=== PATIENT | female | born 1980 | race African-American/Black ===

== ENCOUNTER 2020-08-25 11:39 | Emergency (ER) | payer OTHER ==
[2020-08-25 11:45] VITALS: BP 151/93
--- NOTE | 2020-08-25 12:09 | ED Physician Documentation ---
PD HPI LOWER EXT INJURY - Stated complaint Stated Complaint: L ANKLE PX - Chief complaint Chief Complaint: Trauma Ext - History obtained from History obtained from: Patient - History of Present Illness PD HPI LOW EXT INJURY LOCATION: Left, Ankle Type of injury: Twist (inversion when stepping off curb) Timing - onset: Yesterday Timing - details: Abrupt onset, Still present Worsened by: Moving, Palpating, Other (walking) Associated symptoms: Swelling. No: Weakness, Numbness Similar symptoms before: Has not had sx before Review of Systems Constitutional: denies: Fever, Chills Nose: denies: Rhinorrhea / runny nose, Congestion Throat: denies: Sore throat Respiratory: denies: Cough Skin: denies: Abrasion (s), Laceration (s) PD PAST MEDICAL HISTORY - Past Medical History Past Medical History: No - Present Medications Home Medications: Ambulatory Orders Medication Instructions Recorded Confirmed No Known Home Medications 08/25/20 08/25/20 - Allergies Allergies/Adverse Reactions: Allergies Allergy/AdvReac Type Severity Reaction Status Date / Time Sulfa (Sulfonamide Allergy Itching Verified 08/25/20 11:45 Antibiotics) PD ED PE NORMAL - Vitals Vital signs reviewed: Yes - General General: Alert and oriented X 3, No acute distress, Well developed/nourished - Derm Derm: Normal color, Warm and dry - Extremities Extremities: Other (left ankle with tender anterolateral ankle with pain on inversion and slight laxity. True inversion without laxity so posterior ligament seems intace. Not tender medially nor achilles. ) - Neuro Neuro: No motor deficit, No sensory deficit Results - Vitals Vitals: Oxygen O2 Source Room air - Rads (name of study) left ankle Radiology: Prelim report reviewed (no fractures), See rad report PD MEDICAL DECISION MAKING - ED course Complexity details: considered differential (seems likely partial ligament tear ATFL. ), d/w patient Departure - Departure Disposition: 01 Home, Self Care Clinical Impression: Sprain of lateral ligament of ankle joint Condition: Stable Record reviewed to determine appropriate education?: Yes Instructions: ED Sprain Ankle W X Ray Comments: Your x-ray does not show any fractures. However it does seem likely that you have some stretching or partial tear of the ankle ligaments. This can take several weeks to heal fully sometimes. Use the ankle support when up and around for the next 3 weeks to give time for her to fully heal. I would anticipate however improvement over the next several days as the swelling goes down and feel much better over the next 3 to 5 days. Ice elevate and rest it with Charbel wrap often to reduce swelling. Crutches as needed for discomfort with partial to no weightbearing initially and progress weightbearing as tolerated. You can go on to walking without the crutches when comfortable but continue with the ankle support. Ibuprofen or Aleve or Tylenol as needed for pains. Recheck if not improved well over the next week and resolved over 2 to 3 weeks. Discharge Date/Time: 08/25/20 12:59
--- NOTE | 2020-08-25 12:16 | XRAY Report ---
PROCEDURE: Ankle 3 View LT INDICATIONS: trauma TECHNIQUE: 3 views of the ankle were acquired. COMPARISON: None FINDINGS: Bones: No fractures or dislocations. Ankle mortise is normally aligned. No suspicious bony lesions . Soft tissues: No tibiotalar joint effusion. Achilles tendon appears normal. IMPRESSION: No acute ankle fracture or dislocation. Reviewed by: Axel Meadows MD on 08/25/2020 12:14 PM PDT Approved by: Axel Meadows MD on 08/25/2020 12:14 PM PDT Station ID: [id number]
== END 2020-08-25 12:59 | disposition home or self-care (01) ==
LOC: ED 11:39
DX: S93.492A Sprain of other ligament of left ankle, initial encounter (principal); X50.1XXA Overexertion from prolonged static or awkward postures, initial encounter; Y93.01 Activity, walking, marching and hiking; Y92.480 Sidewalk as the place of occurrence of the external cause
CPT/HCPCS: 99282

== ENCOUNTER 2021-04-03 13:24 | Emergency (ER) | payer OTHER ==
[2021-04-03 13:38] VITALS: BP 136/86
--- NOTE | 2021-04-03 13:51 | ED Physician Documentation ---
PD HPI URI - Stated complaint Stated Complaint: grant,bodyache,cough,sore throat - Chief complaint Chief Complaint: Heent - History obtained from History obtained from: Patient - History of Present Illness Timing - onset: How many days ago (2) Timing duration: Days (2) Timing details: Gradual onset Pain level max: 5 Pain level now: 4 Associated symptoms: Nasal congestion, Rhinorrhea, Sore throat, Dry cough. No: Fever, Chills, Chest pain, Dyspnea, NVD Contributing factors: Sick contact (possible covid exposure) Improves by: Rest Worsened by: Activity, Breathing Review of Systems Constitutional: denies: Fever Nose: reports: Rhinorrhea / runny nose, Congestion Throat: reports: Sore throat Respiratory: reports: Cough GI: denies: Abdominal Pain, Nausea, Vomiting, Diarrhea Skin: denies: Rash Musculoskeletal: denies: Neck pain, Back pain Neurologic: denies: Headache PD PAST MEDICAL HISTORY - Past Medical History Past Medical History: No - Past Surgical History Past Surgical History: No - Present Medications Home Medications: Ambulatory Orders Medication Instructions Recorded Confirmed Benzonatate [Tessalon] 200 mg PO TID PRN #30 cap 04/03/21 Cetirizine HCl/Pseudoephedrine 1 each PO BID PRN #30 ea 04/03/21 [Zyrtec-D Tablet] Levothyroxine Sodium [Synthroid] 25 mcg PO DAILY 04/03/21 04/03/21 - Allergies Allergies/Adverse Reactions: Allergies Allergy/AdvReac Type Severity Reaction Status Date / Time Sulfa (Sulfonamide Allergy Itching Verified 04/03/21 13:32 Antibiotics) - Living Situation Living Situation: reports: With family Living Arrangement: reports: At home - Social History Does the pt smoke?: No Smoking Status: Never smoker Does the pt have substance abuse?: No - Immunizations Immunizations are current?: No Immunizations: No immun - POLST Patient has POLST: No PD ED PE NORMAL - Vitals Vital signs reviewed: Yes - General General: Alert and oriented X 3, No acute distress, Well developed/nourished - HEENT HEENT: PERRL, Ears normal, Moist mucous membranes, Pharynx benign - Neck Neck: Supple, no meningeal sign, No adenopathy - Cardiac Cardiac: RRR - Respiratory Respiratory: No respiratory distress, Clear bilaterally - Abdomen Abdomen: Soft, Non tender, Non distended - Derm Derm: Warm and dry - Extremities Extremities: No edema - Neuro Neuro: Alert and oriented X 3 - Psych Psych: Normal mood, Normal affect Results - Vitals Vitals: Vital Signs - 24 hr 04/03/21 13:27 Temperature 37.2 C Heart Rate 97 Respiratory 18 Rate Blood Pressure 136/86 H O2 Saturation 100 Oxygen O2 Source Room air PD MEDICAL DECISION MAKING - ED course Complexity details: considered differential, d/w patient ED course: Patient with what appears to be a viral upper respiratory infection. She is well-appearing, nontoxic. Afebrile. No hypoxia. No respiratory distress. COVID testing performed. We will continue supportive care and have her follow-up with her doctor for further care. Patient counseled regarding signs and symptoms for which I believe and urgent re-evaluation would be necessary. Patient with good understanding of and agreement to plan and is comfortable going home at this time This document was made in part using voice recognition software. While efforts are made to proofread this document, sound alike and grammatical errors may occur. Departure - Departure Disposition: Home, Self Care Clinical Impression: Viral URI Condition: Good Instructions: ED Viral Syndrome Follow-Up: your,doctor as needed [Other] Prescriptions: Benzonatate [Tessalon] 200 mg PO TID PRN #30 cap PRN Reason: Cough Cetirizine HCl/Pseudoephedrine [Zyrtec-D Tablet] 1 each PO BID PRN #30 ea PRN Reason: nasal congestion Comments: Your prescriptions were sent to [facility] in [place]. Please follow-up with your doctor for further care. Return if you worsen. You have a Covid test pending. You need to self quarantine until the result is done and negative. The results should be done in 24-48 hours. We will call with a positive result, the fastest way to get a negative result for confirmation though is to go to the hospital website at [email or web address], click on the my [facility] tab and sign up for the patient portal. If any of your friends and/or family need to be tested, they can call the hospital at [phone] for an appointment to have their Covid test. Forms: Activity restrictions
== END 2021-04-03 14:45 | disposition home or self-care (01) ==
LOC: ED 13:24
DX: U07.1 COVID-19 (principal)
CPT/HCPCS: 99283

== ENCOUNTER 2021-07-10 08:14 | Emergency (ER) | payer OTHER ==
--- NOTE | 2021-07-10 08:46 | ED Physician Documentation ---
PD HPI URI - Stated complaint Stated Complaint: COUGH/HEAD/THROAT PX - History obtained from History obtained from: Patient - History of Present Illness Timing - onset: How many days ago (few) Timing duration: Days (few) Timing details: Abrupt onset, Still present Associated symptoms: Fever, Nasal congestion, Dry cough, Dyspnea (with wheezing) Contributing factors: No: Sick contact, Travel, Unimmunized Similar symptoms before: Has not had sx before Recently seen: Not recently seen Review of Systems Constitutional: reports: Chills Nose: reports: Congestion Throat: denies: Sore throat Respiratory: reports: Dyspnea, Cough, Wheezing GI: denies: Abdominal Pain, Nausea, Vomiting, Diarrhea Skin: denies: Rash Neurologic: reports: Generalized weakness. denies: Near syncope PD PAST MEDICAL HISTORY - Past Medical History Cardiovascular: None Respiratory: None Endocrine/Autoimmune: None - Past Surgical History Past Surgical History: No - Present Medications Home Medications: Ambulatory Orders Medication Instructions Recorded Confirmed Benzonatate [Tessalon] 200 mg PO TID PRN #30 cap 04/03/21 Cetirizine HCl/Pseudoephedrine 1 each PO BID PRN #30 ea 04/03/21 [Zyrtec-D Tablet] Levothyroxine Sodium [Synthroid] 25 mcg PO DAILY 04/03/21 04/03/21 Albuterol Sulf [Ventolin Hfa 2 - 3 puffs INH Q4HR PRN #1 inhaler 07/10/21 Inhaler] Benzonatate [Tessalon] 100 mg PO TID PRN #20 cap 07/10/21 dexAMETHasone [Decadron] 4 mg PO DAILY #5 tablet 07/10/21 Penicillin V Potassium 500 mg PO BID #20 tablet 07/11/21 - Allergies Allergies/Adverse Reactions: Allergies Allergy/AdvReac Type Severity Reaction Status Date / Time Sulfa (Sulfonamide Allergy Itching Verified 07/10/21 08:43 Antibiotics) - Social History Does the pt smoke?: No Smoking Status: Never smoker Does the pt have substance abuse?: No - Immunizations Immunizations are current?: No Immunizations: No immun - POLST Patient has POLST: No PD ED PE NORMAL - Vitals Vital signs reviewed: Yes - General General: Alert and oriented X 3, Well developed/nourished - HEENT HEENT: Pharynx benign - Neck Neck: Supple, no meningeal sign, No adenopathy - Cardiac Cardiac: RRR, No murmur - Respiratory Respiratory: No respiratory distress. No: Clear bilaterally (diffuse expiratory wheezing. No accessory muscle use. ) - Abdomen Abdomen: Soft, Non tender - Derm Derm: Normal color, Warm and dry - Neuro Neuro: Alert and oriented X 3, No motor deficit, Normal speech Results - Vitals Vitals: Oxygen O2 Source Room air - Labs Labs: Microbiology 07/10/21 08:38 Group A Strep Throat Culture - Final Throat Beta Hemolytic Strep Group B Beta Hemolytic Strep Group F Laboratory Tests 07/10/21 07/10/21 08:38 09:13 Coronavirus (PCR) NEGATIVE Group A Strep Rapid Negative PD MEDICAL DECISION MAKING - ED course Complexity details: considered differential (seems URI with wheezing. ), d/w patient Departure - Departure Disposition: 01 Home, Self Care Clinical Impression: Viral URI with cough, Wheezing Condition: Stable Record reviewed to determine appropriate education?: Yes Instructions: ED URI Viral W Wheezing Prescriptions: Albuterol Sulf [Ventolin Hfa Inhaler] 2 - 3 puffs INH Q4HR PRN #1 inhaler PRN Reason: Shortness Of Air/Wheezing dexAMETHasone [Decadron] 4 mg PO DAILY #5 tablet Penicillin V Potassium 500 mg PO BID #20 tablet Benzonatate [Tessalon] 100 mg PO TID PRN #20 cap PRN Reason: Cough Comments: Your chest x-ray is clear without any signs of pneumonia. Your COVID test should result likely tomorrow. Its does sound like a viral type illness with bronchial inflammation causing the wheezing. We can treat this with an albuterol inhaler 2 to 3 puffs 4 times a day regularly for the next several days to week and add at times if needed. Also Decadron steroid daily for 5 more days and Tessalon/benzonatate every 4-6 hours as needed for cough. I transmitted prescriptions to [facility] pharmacy in [place]. Recheck if not improving well over the next several days and return if worse. Discharge Date/Time: 07/10/21 11:29
[2021-07-10] MEDS ORDERED: BENZONATATE 100 MG CAPSULE PO STA (09:07)
[2021-07-10] MEDS ORDERED: CHERRY SYRUP 10 ML UDC PO ONE (09:07)
[2021-07-10] MEDS ORDERED: DEXAMETHASONE 10 MG/ML VIAL PO STA (09:07)
[2021-07-10] MEDS ORDERED: ALBUTEROL NEB 2.5 MG/3 ML INH STA ×2 (09:07→09:58)
[2021-07-10 09:45] LABS: RAPID STREP SCREEN Negative (Negative)
--- NOTE | 2021-07-10 10:37 | XRAY Report ---
PROCEDURE: Chest 1 View X-Ray INDICATIONS: cough and wheezing TECHNIQUE: One view of the chest was acquired. COMPARISON: None FINDINGS: Surgical changes and devices: None. Lungs and pleura: No pleural effusions or pneumothorax. Lungs are clear. Mediastinum: Mediastinal contours appear normal. Heart size is normal. Bones and chest wall: No suspicious bony lesions. Overlying soft tissues appear unremarkable. IMPRESSION: No significant portable chest abnormality is seen. Reviewed by: Higinio Braun MD on 07/10/2021 9:36 AM ROLAN Approved by: Higinio Braun MD on 07/10/2021 9:36 AM ROLAN Station ID: [id number]
[2021-07-10 11:29] VITALS: BP 138/98
--- NOTE | 2021-07-11 11:39 | ED Physician Documentation ---
ED Addendum - Addendum Addendum: 07/11/21 11:38 Patient seen by my colleague yesterday for viral URI with cough. Rapid strep negative but subsequent culture has grown beta-hemolytic strep B and F. Penicillin VK 500 twice daily [place] Patient was notified of results by nursing staff
== END 2021-07-10 11:29 | disposition home or self-care (01) ==
LOC: ED 08:14
DX: J06.9 Acute upper respiratory infection, unspecified (principal); Z20.822 Contact with and (suspected) exposure to COVID-19
CPT/HCPCS: 71045; 87070; 87077; 87430; 87635; 94640; 99282; 99284; A9270

== ENCOUNTER 2021-07-28 16:46 | Emergency (ER) | payer OTHER ==
[2021-07-28 16:58] VITALS: BP 152/100
--- NOTE | 2021-07-28 17:03 | ED Physician Documentation ---
PD HPI URI - Stated complaint Stated Complaint: SORE THROAT,COUGHING - Chief complaint Chief Complaint: Heent - History obtained from History obtained from: Patient - History of Present Illness Timing - onset: How many days ago (2-3) Timing details: Gradual onset, Still present (increasing sore throat and some hoarseness over 2-3 days. Had similar 2 weeks ago and had throat culture neg rapid strep, but Cx showing group B and F strep. She states slow improvement on abx and symptoms returned now 6 days after finishing 10 day course.) Associated symptoms: Chills, Sore throat, Dyspnea (some wheezing. Still has albuterol MDI at home.), Other (some voice hoarseness.). No: Fever, Dry cough Recently seen: Emergency Dept (Seen 2 weeks ago with similar symptoms combined with some asthma type symptoms. Her throat culture grew groups B and F strep and she was prescribed penicillin for 10 days. Slow improvement while on that and now recurrent symptoms 6 days after finishing.) Review of Systems Constitutional: reports: Chills. denies: Fever Nose: denies: Rhinorrhea / runny nose, Congestion Throat: reports: Sore throat, Swollen tonsils Respiratory: reports: Wheezing. denies: Cough GI: denies: Nausea, Vomiting, Diarrhea Skin: denies: Rash, Lesions PD PAST MEDICAL HISTORY - Past Medical History Cardiovascular: None Respiratory: None Endocrine/Autoimmune: None - Past Surgical History Past Surgical History: No - Present Medications Home Medications: Ambulatory Orders Medication Instructions Recorded Confirmed Benzonatate [Tessalon] 200 mg PO TID PRN #30 cap 04/03/21 Cetirizine HCl/Pseudoephedrine 1 each PO BID PRN #30 ea 04/03/21 [Zyrtec-D Tablet] Levothyroxine Sodium [Synthroid] 25 mcg PO DAILY 04/03/21 04/03/21 Albuterol Sulf [Ventolin Hfa 2 - 3 puffs INH Q4HR PRN #1 inhaler 07/10/21 Inhaler] Benzonatate [Tessalon] 100 mg PO TID PRN #20 cap 07/10/21 dexAMETHasone [Decadron] 4 mg PO DAILY #5 tablet 07/10/21 Penicillin V Potassium 500 mg PO BID #20 tablet 07/11/21 cephALEXin [Keflex] 500 mg PO TID #20 cap 07/28/21 dexAMETHasone [Decadron] 4 mg PO DAILY #4 tablet 07/28/21 - Allergies Allergies/Adverse Reactions: Allergies Allergy/AdvReac Type Severity Reaction Status Date / Time Sulfa (Sulfonamide Allergy Itching Verified 07/28/21 16:58 Antibiotics) - Social History Does the pt smoke?: No Smoking Status: Never smoker Does the pt have substance abuse?: No - Immunizations Immunizations are current?: No Immunizations: No immun - POLST Patient has POLST: No PD ED PE NORMAL - Vitals Vital signs reviewed: Yes - General General: Alert and oriented X 3, No acute distress, Well developed/nourished - HEENT HEENT: Ears normal, Moist mucous membranes. No: Pharynx benign (Tonsils have redness with mild to moderate swelling and some spotty exudate. No peritonsillar edema nor deviation.) - Neck Neck: Supple, no meningeal sign, Other (mild anterior adenopathy. ) - Cardiac Cardiac: RRR (mild tachycardia), No murmur Results - Vitals Vitals: Vital Signs - 24 hr 07/28/21 16:53 Temperature 36.5 C Heart Rate 103 H Respiratory 14 Rate Blood Pressure 152/100 H O2 Saturation 100 Oxygen O2 Source Room air PD MEDICAL DECISION MAKING - ED course Complexity details: reviewed old records, considered differential (Slow clearance of her symptoms with penicillin on the recent antibiotic course and now recurrent symptoms within several days of finishing. This would clearly suggest incomplete clearance of the infection and I would treat it with a different antibiotic.), d/w patient Departure - Departure Disposition: 01 Home, Self Care Clinical Impression: Acute recurrent streptococcal tonsillitis Condition: Stable Record reviewed to determine appropriate education?: Yes Instructions: ED Strep Pharyngitis Conf Prescriptions: dexAMETHasone [Decadron] 4 mg PO DAILY #4 tablet cephALEXin [Keflex] 500 mg PO TID #20 cap Comments: The slow improvement of your strep throat on the previous antibiotics combined with the recurrent symptoms now so soon after finishing are both suggestive of incomplete clearance of the strep with recurrent infection. We would just treat with a different antibiotic now. Cephalexin 3 times daily for 7 days and we can also add Decadron steroid daily for 4 more days to help with inflammation. Stay well-hydrated. Tylenol every 4-6 hours if needed for pains. I would anticipate fairly ready improvement over 2 to 3 days in your symptoms. Recheck if not cleared over the next week. I sent your prescription to [facility] pharmacy.
[2021-07-28] MEDS ORDERED: cephALEXin 250 MG CAPSULE PO STA (17:12)
[2021-07-28] MEDS ORDERED: CHERRY SYRUP 10 ML UDC PO ONE (17:12)
[2021-07-28] MEDS ORDERED: DEXAMETHASONE 10 MG/ML VIAL PO STA (17:12)
[2021-07-28] MEDS ORDERED: ACETAMINOPHEN 325 MG TABLET PO STA (17:12)
== END 2021-07-28 18:11 | disposition home or self-care (01) ==
LOC: ED 16:46
DX: J03.01 Acute recurrent streptococcal tonsillitis (principal)
CPT/HCPCS: 99282; 99283; A9270

== ENCOUNTER 2021-08-09 10:06 | Emergency (ER) | payer OTHER ==
[2021-08-09] MEDS ORDERED: ONDANSETRON 4 MG/2 ML VIAL IVP STA (10:29)
[2021-08-09] MEDS ORDERED: ACETAMINOPHEN 325 MG TABLET PO STA (10:29)
[2021-08-09] MEDS ORDERED: SODIUM CHLORIDE 0.9% 1,000 ML IV STA (10:29)
[2021-08-09] MEDS ORDERED: KETOROLAC 15 MG/ML VIAL IVP STA (10:29)
--- NOTE | 2021-08-09 10:32 | ED Physician Documentation ---
History of Present Illness - Stated complaint Stated Complaint: HEAD PX/FEVER/CHILLS/COUGH - Chief complaint Chief Complaint: Fever - History obtained from History obtained from: Patient - Additonal information Additional information: The patient comes to the emergency department chief complaint of fever, cough, and congestion with body aches that started a couple of days ago. Patient states that the third time she has been sick this month and was seen in the beginning of the month and placed on amoxicillin for possible strep. Patient states she got better and then about 6 days later, after finishing her antibiotics, she developed a similar feeling of pain and fullness in her throat with congestion and body aches. She was placed on antibiotics again, this time Keflex, and just finished these roughly a week ago. Patient states that the symptoms are little bit different than the first 2 times and that she really does not have much of a sore throat, other than just some pain and a raw feeling from coughing. She does have a fever this time which is different from the first 2 bouts of illness she had this month. No urinary symptoms. She states sometimes she feels like vomiting after coughing hard but no nausea otherwise. No chest pain. 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 She is otherwise healthy. No other complaints at this time. Review of Systems Ten Systems: 10 systems reviewed and negative Constitutional: reports: Fever, Chills, Myalgias Eyes: reports: Reviewed and negative Ears: reports: Reviewed and negative Nose: reports: Rhinorrhea / runny nose, Congestion Throat: reports: Reviewed and negative Cardiac: reports: Reviewed and negative Respiratory: reports: Cough. denies: Dyspnea GI: reports: Reviewed and negative. denies: Vomiting : reports: Reviewed and negative Skin: reports: Reviewed and negative Musculoskeletal: reports: Reviewed and negative Neurologic: reports: Reviewed and negative Psychiatric: reports: Reviewed and negative Endocrine: reports: Reviewed and negative Immunocompromised: reports: Reviewed and negative PD PAST MEDICAL HISTORY - Past Medical History Cardiovascular: None Respiratory: None Endocrine/Autoimmune: None - Past Surgical History Past Surgical History: No - Present Medications Home Medications: Ambulatory Orders Medication Instructions Recorded Confirmed Benzonatate [Tessalon] 200 mg PO TID PRN #30 cap 04/03/21 Cetirizine HCl/Pseudoephedrine 1 each PO BID PRN #30 ea 04/03/21 [Zyrtec-D Tablet] Levothyroxine Sodium [Synthroid] 25 mcg PO DAILY 04/03/21 04/03/21 Albuterol Sulf [Ventolin Hfa 2 - 3 puffs INH Q4HR PRN #1 inhaler 07/10/21 Inhaler] Benzonatate [Tessalon] 100 mg PO TID PRN #20 cap 07/10/21 dexAMETHasone [Decadron] 4 mg PO DAILY #5 tablet 07/10/21 Penicillin V Potassium 500 mg PO BID #20 tablet 07/11/21 cephALEXin [Keflex] 500 mg PO TID #20 cap 07/28/21 dexAMETHasone [Decadron] 4 mg PO DAILY #4 tablet 07/28/21 Ondansetron Odt [Zofran] 4 mg TL Q6H PRN #10 tablet 08/09/21 - Allergies Allergies/Adverse Reactions: Allergies Allergy/AdvReac Type Severity Reaction Status Date / Time Sulfa (Sulfonamide Allergy Itching Verified 08/09/21 10:09 Antibiotics) - Social History Does the pt smoke?: No Smoking Status: Never smoker Does the pt have substance abuse?: No - Immunizations Immunizations are current?: No Immunizations: No immun - POLST Patient has POLST: No PD ED PE NORMAL - Vitals Vital signs reviewed: Yes - General General: Alert and oriented X 3, No acute distress, Well developed/nourished, Other (Patient appears moderately uncomfortable, with intermittent congested cough, but otherwise no apparent distress.) - HEENT HEENT: Atraumatic, PERRL, EOMI, Moist mucous membranes, Pharynx benign - Neck Neck: Supple, no meningeal sign - Cardiac Cardiac: No murmur, Strong equal pulses, Other (Tachycardic rate regular rhythm no murmurs) - Respiratory Respiratory: No respiratory distress, Clear bilaterally - Abdomen Abdomen: Soft, Non tender, Non distended - Derm Derm: Normal color, Warm and dry, No rash - Extremities Extremities: No deformity, No edema - Neuro Neuro: Alert and oriented X 3, 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, Normal speech - Psych Psych: Normal mood, Normal affect Results - Vitals Vitals: Oxygen O2 Source Room air - Labs Labs: Microbiology 08/09/21 10:38 Blood Culture - Preliminary Blood NO GROWTH AFTER 2 DAYS 08/09/21 10:35 Blood Culture - Preliminary Blood NO GROWTH AFTER 2 DAYS Laboratory Tests 08/09/21 08/09/21 08/09/21 10:35 10:35 10:36 WBC 6.6 RBC 4.97 Hgb 14.3 Hct 43.5 MCV 87.5 MCH 28.8 MCHC 32.9 RDW 13.2 Plt Count 168 MPV 10.1 Neut # (Auto) 5.2 Lymph # (Auto) 0.6 L [place] # (Auto) 0.7 Eos # (Auto) 0.1 Baso # (Auto) 0.0 Absolute Nucleated RBC 0.00 Nucleated RBC % 0.0 Sodium 132 L Potassium 4.1 Chloride 96 L Carbon Dioxide 28 Anion Gap 8.0 BUN 6 Creatinine 1.1 H Estimated GFR (MDRD) 67 L Glucose 75 Calcium 9.1 Total Bilirubin 0.6 AST 24 ALT 30 Alkaline Phosphatase 66 Total Protein 7.6 Albumin 4.1 Globulin 3.5 Albumin/Globulin Ratio 1.2 Lipase 42 Nasal Adenovirus (PCR) NOT DETECTED Nasal B. parapertussis DNA (PCR) NOT DETECTED Nasal Coronavir 229E PCR NOT DETECTED Nasal Coronavir HKU1 PCR NOT DETECTED Nasal Coronavir NL63 PCR NOT DETECTED Nasal Coronavir OC43 PCR NOT DETECTED Nasal Enterovir/Rhinovir PCR NOT DETECTED Nasal Influenza A H3 PCR DETECTED A Nasal Influenza B PCR NOT DETECTED Nasal Parainfluen 1 PCR NOT DETECTED Nasal Parainfluen 2 PCR NOT DETECTED Nasal Parainfluen 3 PCR NOT DETECTED Nasal Parainfluen 4 PCR NOT DETECTED Nasal RSV (PCR) NOT DETECTED Nasal B.pertussis DNA PCR NOT DETECTED Nasal C.pneumoniae (PCR) NOT DETECTED Damion Human Metapneumo PCR NOT DETECTED Nasal M.pneumoniae (PCR) NOT DETECTED Nasal SARS-CoV-2 (PCR) NOT DETECTED Infectious [place] Assay 08/09/21 10:38 WBC RBC Hgb Hct MCV MCH MCHC RDW Plt Count MPV Neut # (Auto) Lymph # (Auto) [place] # (Auto) Eos # (Auto) Baso # (Auto) Absolute Nucleated RBC Nucleated RBC % Sodium Potassium Chloride Carbon Dioxide Anion Gap BUN Creatinine Estimated GFR (MDRD) Glucose Calcium Total Bilirubin AST ALT Alkaline Phosphatase Total Protein Albumin Globulin Albumin/Globulin Ratio Lipase Nasal Adenovirus (PCR) Nasal B. parapertussis DNA (PCR) Nasal Coronavir 229E PCR Nasal Coronavir HKU1 PCR Nasal Coronavir NL63 PCR Nasal Coronavir OC43 PCR Nasal Enterovir/Rhinovir PCR Nasal Influenza A H3 PCR Nasal Influenza B PCR Nasal Parainfluen 1 PCR Nasal Parainfluen 2 PCR Nasal Parainfluen 3 PCR Nasal Parainfluen 4 PCR Nasal RSV (PCR) Nasal B.pertussis DNA PCR Nasal C.pneumoniae (PCR) Damion Human Metapneumo PCR Nasal M.pneumoniae (PCR) Nasal SARS-CoV-2 (PCR) Infectious [place] Assay NEGATIVE - Rads (name of study) CXR Radiology: Final report received, EMP read indepedently, See rad report (neg) PD MEDICAL DECISION MAKING - ED course Complexity details: reviewed results, re-evaluated patient, considered differential, d/w patient ED course: The patient was worked up with labs, including blood cultures, respiratory PCR panel, Monospot, and chest x-ray. She was given IV fluids, Zofran, Tylenol, Toradol. She was febrile and appropriately tachycardic for the degree of fever she had plus some likely dehydration. However, her blood pressure was normal and the patient did not appear toxic. As such, although the fever and resultant tachycardia flagged her for sepsis, I did not find other evidence of sepsis at this time. Work-up was negative, except for finding of Influenza A on PCR panel. I discussed the results with the pt, and have given her a work note. We have discussed symptomatic management at home, as well as the usual indications for return. Departure - Departure Disposition: 01 Home, Self Care Clinical Impression: Influenza A Condition: Stable Instructions: ED Flu Prescriptions: Ondansetron Odt [Zofran] 4 mg TL Q6H PRN #10 tablet PRN Reason: Nausea / Vomiting Comments: For the most part, your tests look great. Your white blood cell count is normal, your organ function is also normal, and your test for mononucleosis is negative. Your chest x-ray looks good. Unfortunately, you are positive for influenza a,. This is a viral illness and although it can be quite miserable, it usually resolves on its own without complications. You should stay home from work until at very least, your fever resolves, and until you are feeling well enough to go back. You may take Tylenol 650 mg every 4 hours and ibuprofen 600 mg every 6 hours, as needed for fever. You may take the nausea medicine as needed. You may also use [id number] cold preparations to help with the cough. Please drink plenty of fluids and follow-up with your primary doctor as needed. Discharge Date/Time: 08/09/21 12:30
[2021-08-09 10:45] LABS: BASOPHILS % (AUTO) 0.3 %; EOSINOPHILS # (AUTO) 0.1 10^3/uL (0.0-0.7); EOSINOPHILS % (AUTO) 1.2 %; HCT - HEMATOCRIT 43.5 % (37.0-47.0); HGB - HEMOGLOBIN 14.3 g/dL (12.0-16.0); LYMPHOCYTES # (AUTO) 0.6 10^3/uL (1.5-3.5); LYMPHOCYTES % (AUTO) 8.7 %; MEAN CORPUSCULAR HEMOGLOBIN 28.8 pg (27.0-31.0); MEAN CORPUSCULAR HGB CONC 32.9 g/dL (32.0-36.0); MEAN CORPUSCULAR VOLUME 87.5 fL (81.0-99.0); MEAN PLATELET VOLUME 10.1 fL (7.9-10.8); MONOCYTES # (AUTO) 0.7 10^3/uL (0.0-1.0); MONOCYTES % (AUTO) 10.4 %; NEUTROPHILS # (AUTO) 5.2 10^3/uL (1.5-6.6); NEUTROPHILS % (AUTO) 78.9 %; PLT - PLATELET COUNT 168 10^3/uL (130-450); RED BLOOD COUNT 4.97 10^6/uL (4.20-5.40); RED CELL DISTRIBUTION WIDTH 13.2 % (12.0-15.0); WHITE BLOOD COUNT 6.6 x10^3/uL (4.8-10.8)
[2021-08-09 10:53] LABS: INFECTIOUS MONONUCLEOSIS NEGATIVE (Negative)
[2021-08-09 10:58] LABS: ALBUMIN 4.1 g/dL (3.2-5.5); ALBUMIN/GLOBULIN RATIO 1.2 (1.0-2.2); BILIRUBIN,TOTAL 0.6 mg/dL (0.2-1.0); CALCIUM 9.1 mg/dL (8.5-10.3); CREATININE 1.1 mg/dL (0.4-1.0); POTASSIUM 4.1 mmol/L (3.5-5.0); TOTAL PROTEIN 7.6 g/dL (6.7-8.2)
--- NOTE | 2021-08-09 11:09 | XRAY Report ---
PROCEDURE: Chest 1 View X-Ray INDICATIONS: cough/fever TECHNIQUE: One view of the chest was acquired. COMPARISON: CXR 07/10/2021. FINDINGS: Surgical changes and devices: None. Lungs and pleura: No pleural effusions or pneumothorax. Lungs appear clear. No consolidation. Mediastinum: Mediastinal contours appear normal. Heart size is normal. Bones and chest wall: No suspicious bony lesions. Overlying soft tissues appear unremarkable. IMPRESSION: No acute cardiopulmonary abnormality. CT of the chest could be considered for further evaluation. Reviewed by: Ziggy Neff MD on 08/09/2021 11:08 AM PDT Approved by: Ziggy Neff MD on 08/09/2021 11:08 AM PDT Station ID: [id number]
[2021-08-09 11:41] LABS: B. PARAPERTUSSIS- RESP PCR PAN NOT DETECTED; B. PERTUSSIS- RESP PCR PANEL NOT DETECTED; C. PNEUMONIAE- RESP PCR PANEL NOT DETECTED; CORONAVIRUS 229E-RESP PCR NOT DETECTED; CORONAVIRUS HKU1-RESP PCR NOT DETECTED; CORONAVIRUS NL63-RESP PCR NOT DETECTED; CORONAVIRUS OC43-RESP PCR NOT DETECTED; HUMAN METAPNEUMOVIRUS NOT DETECTED; INFLUENZA A H3- RESP PCR PANEL DETECTED; INFLUENZA B - RESP PCR PANEL NOT DETECTED; M. PNEUMONIAE- RESP PCR PANEL NOT DETECTED; PARAINFLUENZA VIRUS 1 NOT DETECTED; PARAINFLUENZA VIRUS 2 NOT DETECTED; PARAINFLUENZA VIRUS 3 NOT DETECTED; PARAINFLUENZA VIRUS 4 NOT DETECTED; RHINOVIRUS/ENTEROVIRUS NOT DETECTED; RSV- RESP PCR PANEL NOT DETECTED; SARS-CoV-2 -RESP PCR PANEL NOT DETECTED
[2021-08-09 12:09] VITALS: BP 131/83
== END 2021-08-09 12:30 | disposition home or self-care (01) ==
LOC: ED 10:06
DX: J10.1 Influenza due to other identified influenza virus with other respiratory manifestations (principal); Z20.822 Contact with and (suspected) exposure to COVID-19
CPT/HCPCS: 36415; 71045; 80053; 83690; 85025; 86308; 87040; 87633; 96374; 96375; 99284; A9270

== ENCOUNTER 2021-12-22 21:15 | Emergency (ER) | payer OTHER ==
[2021-12-22 21:31] LABS: RAPID STREP SCREEN Negative (Negative)
--- NOTE | 2021-12-22 21:42 | ED Physician Documentation ---
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 HEENT: Tonsil/Adenoidectomy - Present Medications Home Medications: Ambulatory Orders Medication Instructions Recorded Confirmed Levothyroxine Sodium [Synthroid] 25 mcg PO DAILY 04/03/21 12/22/21 - Allergies Allergies/Adverse Reactions: Allergies Allergy/AdvReac Type Severity Reaction Status Date / Time Sulfa (Sulfonamide Allergy Itching Verified 12/22/21 21:22 Antibiotics) - Social History Does the pt smoke?: No Smoking Status: Never smoker Does the pt drink ETOH?: No Does the pt have substance abuse?: No - Immunizations Immunizations are current?: No Immunizations: TDAP current <10years - POLST Patient has POLST: No Results - Vitals Vitals: Vital Signs - 24 hr 12/22/21 21:17 Temperature 37.2 C Heart Rate 101 H Respiratory 14 Rate Blood Pressure 170/112 H O2 Saturation 100 Oxygen O2 Source Room air - Labs Labs: Laboratory Tests 12/22/21 21:21 Group A Strep Rapid Negative
[2021-12-22] MEDS ORDERED: DEXAMETHASONE 10 MG/ML VIAL PO STA (21:46)
[2021-12-22] MEDS ORDERED: CHERRY SYRUP 10 ML UDC PO ONE (21:46)
[2021-12-22] MEDS ORDERED: HYDROcod/ACET 5/325 Prepack 4 PO STA (21:46)
--- NOTE | 2021-12-22 21:47 | ED Physician Documentation ---
PD HPI HEENT - Stated complaint Stated Complaint: SORE THROAT,CHILLS,HEADACHE - Chief complaint Chief Complaint: Heent - History obtained from History obtained from: Patient (3 days of severe sore throat associate with body aches and chills but no measured fevers. 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/Adenoidectomy - Present Medications Home Medications: Ambulatory Orders Medication Instructions Recorded Confirmed Levothyroxine Sodium [Synthroid] 25 mcg PO DAILY 04/03/21 12/22/21 - Allergies Allergies/Adverse Reactions: Allergies Allergy/AdvReac Type Severity Reaction Status Date / Time Sulfa (Sulfonamide Allergy Itching Verified 12/22/21 21:22 Antibiotics) - Social History Does the pt smoke?: No Smoking Status: Never smoker Does the pt drink ETOH?: No Does the pt have substance abuse?: No - Immunizations Immunizations are current?: No Immunizations: TDAP current <10years - POLST Patient has POLST: No PD ED PE NORMAL - Vitals Vital signs reviewed: Yes - General General: Alert and oriented X 3, No acute distress - HEENT HEENT: PERRL, EOMI, Other (Mildly laryngitic voice, red tonsillar pillars without swelling or exudate, no cervical adenopathy.) - Neuro Neuro: Alert and oriented X 3, Normal speech Results - Vitals Vitals: Vital Signs - 24 hr 12/22/21 21:17 Temperature 37.2 C Heart Rate 101 H Respiratory 14 Rate Blood Pressure 170/112 H O2 Saturation 100 Oxygen O2 Source Room air - Labs Labs: Laboratory Tests 12/22/21 21:21 Group A Strep Rapid Negative Departure - Departure Disposition: 01 Home, Self Care Clinical Impression: Sore throat Condition: Good Record reviewed to determine appropriate education?: Yes Instructions: ED Pharyngitis Viral Report Pending Comments: Your rapid strep test was negative, we will perform a culture and call in approximately 2 days if the throat culture is positive. Return for new or worsening symptoms. Forms: Activity restrictions
[2021-12-22 22:03] VITALS: BP 158/0
== END 2021-12-22 22:03 | disposition home or self-care (01) ==
LOC: ED 21:15
DX: J02.9 Acute pharyngitis, unspecified (principal)
CPT/HCPCS: 87070; 87430; 99282; 99283; A9270

== ENCOUNTER 2023-03-19 16:34 | Emergency (ER) | payer OTHER ==
[2023-03-19 17:05] LABS: BASOPHILS % (AUTO) 0.2 %; EOSINOPHILS # (AUTO) 0.1 10^3/uL (0.0-0.7); EOSINOPHILS % (AUTO) 0.6 %; HCT - HEMATOCRIT 39.6 % (37.0-47.0); HGB - HEMOGLOBIN 12.9 g/dL (12.0-16.0); LYMPHOCYTES # (AUTO) 1.3 10^3/uL (1.5-3.5); MEAN CORPUSCULAR HEMOGLOBIN 27.6 pg (27.0-31.0); MEAN CORPUSCULAR HGB CONC 32.6 g/dL (32.0-36.0); MEAN CORPUSCULAR VOLUME 84.8 fL (81.0-99.0); MEAN PLATELET VOLUME 9.5 fL (7.9-10.8); MONOCYTES # (AUTO) 0.6 10^3/uL (0.0-1.0); MONOCYTES % (AUTO) 7.1 %; NEUTROPHILS # (AUTO) 6.9 10^3/uL (1.5-6.6); NEUTROPHILS % (AUTO) 76.9 %; PLT - PLATELET COUNT 229 10^3/uL (130-450); RED BLOOD COUNT 4.67 10^6/uL (4.20-5.40); RED CELL DISTRIBUTION WIDTH 12.9 % (12.0-15.0); WHITE BLOOD COUNT 8.9 x10^3/uL (4.8-10.8)
--- NOTE | 2023-03-19 17:22 | XRAY Report ---
PROCEDURE: Chest 1V INDICATIONS: Chest Pain TECHNIQUE: One view of the chest was acquired. COMPARISON: None. FINDINGS: Surgical changes and devices: None. Lungs and pleura: No pleural effusions or pneumothorax. Lungs are clear. Mediastinum: Mediastinal contours appear normal. Heart size is normal. Bones and chest wall: No suspicious bony lesions. Overlying soft tissues appear unremarkable. IMPRESSION: No acute cardiopulmonary process. Reviewed by: Josh Samuel MD on 03/19/2023 5:20 PM PST Approved by: Josh Samuel MD on 03/19/2023 5:20 PM PST Station ID: [id number]
[2023-03-19 17:26] LABS: TROPONIN I HIGH SENSITIVITY 2.4 ng/L (2.3-14.8)
[2023-03-19 17:30] LABS: ALBUMIN 4.1 g/dL (3.2-5.5); ALBUMIN/GLOBULIN RATIO 1.3 (1.0-2.2); BILIRUBIN,TOTAL 0.4 mg/dL (0.2-1.0); CALCIUM 9.3 mg/dL (8.5-10.3); POTASSIUM 3.8 mmol/L (3.5-4.5); TOTAL PROTEIN 7.2 g/dL (6.4-8.9)
[2023-03-19 17:50] VITALS: BP 142/97; O2SAT 100
--- NOTE | 2023-03-19 17:56 | ED Physician Documentation ---
PD HPI ABD PAIN - Stated complaint Stated Complaint: CHEST PX/UPPER BACK PX - Chief complaint Chief Complaint: Abd Pain - History obtained from History obtained from: Patient - Additional information Additional information: 43-year-old woman with history of gastric sleeve, hypertension, IUD in place. She presents with epigastric pain radiating to the back and the shoulders that been going on for about 3 days constantly. It is worse if she lays on her left side or moves and change positions. Is also worse with deep breathing. She vacillates as to whether or not she is short of breath with it. Does not change with eating. Denies pedal edema or calf pain. She never had this before. No vomiting or changes in bowel movements. 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: Tonsil/Adenoidectomy - Present Medications Home Medications: Ambulatory Orders Medication Instructions Recorded Confirmed Levothyroxine Sodium [Synthroid] 25 mcg PO DAILY 04/03/21 12/22/21 HYDROcod/ACETAM 5/325 [[place] 5/325] 1 - 2 tab PO Q6H PRN #10 tablet 03/19/23 Omeprazole 40 mg PO DAILY #30 cap 03/19/23 - Allergies Allergies/Adverse Reactions: Allergies Allergy/AdvReac Type Severity Reaction Status Date / Time Sulfa (Sulfonamide Allergy Itching Verified 12/22/21 21:22 Antibiotics) - Social History Does the pt smoke?: No Smoking Status: Never smoker Does the pt drink ETOH?: No Does the pt have substance abuse?: No - Immunizations Immunizations are current?: No Immunizations: TDAP current <10years - POLST Patient has POLST: No PD ED PE NORMAL - Vitals Vital signs reviewed: Yes - General General: Alert and oriented X 3, Other (She does appear uncomfortable) - Cardiac Cardiac: RRR, No murmur - Respiratory Respiratory: No respiratory distress, Clear bilaterally - Abdomen Abdomen: Non tender - Extremities Extremities: No edema, No calf tenderness / cord - Neuro Neuro: Alert and oriented X 3, Normal speech Results - Vitals Vitals: Vital Signs - 24 hr 03/19/23 03/19/23 16:42 17:42 Temperature 36.5 C Heart Rate 108 H 97 Respiratory 18 13 Rate Blood Pressure 155/95 H 142/97 H O2 Saturation 98 100 Oxygen O2 Source Room air - EKG (time done) 1647 EKG releavant findings:: EKG personally interpreted by author of this note. Relevant findings are: Rate: Rate (enter#) (95) Rhythm: NSR [place]: Normal Intervals: Normal [place] QRS: Normal Ischemia: Normal ST segments - Labs Labs: Laboratory Tests 03/19/23 03/19/23 16:59 16:59 WBC 8.9 RBC 4.67 Hgb 12.9 Hct 39.6 MCV 84.8 MCH 27.6 MCHC 32.6 RDW 12.9 Plt Count 229 MPV 9.5 Neut # (Auto) 6.9 H Lymph # (Auto) 1.3 L [place] # (Auto) 0.6 Eos # (Auto) 0.1 Baso # (Auto) 0.0 Absolute Nucleated RBC 0.00 Nucleated RBC % 0.0 Sodium 138 Potassium 3.8 Chloride 102 Carbon Dioxide 29 Anion Gap 7.0 BUN 13 Creatinine 1.0 Estimated GFR (MDRD) 74 L Glucose 88 Calcium 9.3 Total Bilirubin 0.4 AST 14 ALT 11 Alkaline Phosphatase 74 Troponin I High Sens 2.4 Total Protein 7.2 Albumin 4.1 Globulin 3.1 Albumin/Globulin Ratio 1.3 Lipase 26 - Rads (name of study) 1v chest Relevant Findings:: Final report received, EMP independent interpretation of test PD Medical Decision Making - ED course ED course: She has epigastric pain rating to the back and the shoulders that is positional. Is been going on for 3 days and getting worse. Benign exam other than she does look uncomfortable. Blood work including CBC, CMP, troponin, EKG were all normal/negative as well as a single view chest x-ray. Differential diagnosis includes severe vascular causes but gastritis was high on the list. She received a GI cocktail with complete relief of her pain confirming the diagnosis and she was thankful, we will start her on a PPI. Departure - Departure Disposition: Home, Self Care Clinical Impression: Gastritis Qualifiers: Gastritis type: unspecified gastritis Chronicity: acute Gastritis bleeding: without bleeding Qualified Code(s): K29.00 - Acute gastritis without bleeding Condition: Good Record reviewed to determine appropriate education?: Yes Instructions: ED PUD Vs Gastritis Prescriptions: HYDROcod/ACETAM 5/325 [[place] 5/325] 1 - 2 tab PO Q6H PRN #10 tablet PRN Reason: Pain Omeprazole 40 mg PO DAILY #30 cap Comments: As discussed, today we are diagnosing with gastritis or less likely an ulcer based on your rapid and fairly complete relief of your symptoms with a "GI cocktail." I sent prescriptions electronically to the [facility] in [place]. As discussed, the medications I am prescribing work more completely for this but take a day or 2 or even 3 to really work so you may need some of the painkillers between now and then. Avoid alcohol, Aleve/Motrin or other NSAIDs, spicy food, and minimize caffeine. Call your doctor to arrange a follow-up appointment, make the next available appointment. In the interim, return anytime if worse or if new symptoms develop. I am prescribing a short course of narcotic pain medication for you. These are potentially dangerous and addictive medications that should be used carefully. These medications may constipate you. Take an [id number] stool softener (docusate) twice daily with plenty of water while taking these medications. If you go 24 hours without a bowel movement, take [id number] miralax, per package instructions. Do not drink or drive while taking these medications. If you received narcotic or sedating medications while in the emergency department, do not drive for 24 hours. Store this medication in a safe, secure place and out of reach of children. It is a violation of federal law to give or sell this medication to another person or to use in a manner other than prescribed. The ED will not refill narcotic prescriptions, including prescriptions lost or stolen. To dispose of unwanted medications: 1. [facility] a [facility] box for medication in pill form only (no liquids) 8:00 am to 4:30 p.m. Sunday-Sunday in the lobby of the [facility] [place], [address] [place] [address]. Empty pills into ziplock bag before disposal. Call [phone] for information. 2.[facility] is a free service available to all [facility] residents. Go to [email or web address] Note that many narcotic pain relievers also contain Tylenol/acetaminophen. Please ensure that your total dose of acetaminophen from all sources does not exceed 3 g (3000 mg) per day. Forms: PCP List
[2023-03-19] MEDS: LIDOCAINE VISCOUS 2% 15 ML ORAL SYRINGE MM STA (18:06)
[2023-03-19] MEDS: MAG HYDROX/AL HYDROX/SIMETH 30 ML UDC PO STA (18:06)
== END 2023-03-19 18:30 | disposition home or self-care (01) ==
LOC: ED 16:34
DX: K29.00 Acute gastritis without bleeding (principal); Z98.84 Bariatric surgery status; I10 Essential (primary) hypertension
CPT/HCPCS: 36415; 71045; 80053; 83690; 84484; 85025; 93005; 99284; A9270